=== PATIENT | male | born 1985 | race Caucasian/White ===

== ENCOUNTER 2017-08-13 11:48 | Emergency (ER) | payer BC ==
[2017-08-13 11:52] VITALS: BP 120/80; PULSE 61; RESP 18; TEMP 98.1
[2017-08-13] MEDS ORDERED: KETOROLAC 30 MG/ML 1 ML VIAL IM STA (12:15)
[2017-08-13] MEDS ORDERED: ORPHENADRINE 30 MG/ML 2 ML VIAL IM STA (12:15)
--- NOTE | 2017-08-13 12:18 | ED ---
Back Pain HPI - General Chief Complaint: Back Pain/Injury Stated Complaint: BACK PAIN, POSS PINCHED NERVE Time Seen by Provider: 08/13/17 12:04 Source: patient Limitations: no limitations - History of Present Illness Initial Comments: 31-year-old male patient presents the emergency department today for evaluation of left lower back pain with radiation down the left leg. Patient states that last night he was stepping over a dog when he felt a sharp pop in his left low back. Patient states he has been having significant pain to the location since then especially with change of position and movement. Patient states that the pain radiates down the back of his left leg to approximately the calf region. He denies any numbness or tingling to his lower extremities. Denies any saddle anesthesia. Denies any loss of bowel or bladder control. States he is urinating without difficulty. Patient states he has been taking hot showers to try to relieve the pain but has not been effective. Patient denies any history of similar symptoms. Denies any drug use or alcohol use. Denies any other injury to the back. Patient denies any recent rash, fever, chills, shortness breath, chest pain, abdominal pain, nausea, vomiting, diarrhea, constipation, dizziness, weakness, hematuria, dysuria, urinary urgency, urinary frequency, headache, visual changes, or any other complaints. - Related Data Previous Rx's Medication Instructions Recorded Azithromycin [Zithromax Z-pack] 250 mg PO DIRECTED #6 tab 10/15/15 Diazepam [Valium] 5 mg PO Q8H PRN 3 Days #9 tab 08/13/17 Ibuprofen [Motrin] 600 mg PO Q8HR PRN #30 tab 08/13/17 Allergies Allergy/AdvReac Type Severity Reaction Status Date / Time loratadine [From Claritin] Allergy Unknown Verified 10/15/15 00:54 Mushroom Allergy Unknown Verified 10/15/15 00:54 Penicillins Allergy Unknown Verified 10/15/15 00:54 Review of Systems ROS Statement: Those systems with pertinent positive or pertinent negative responses have been documented in the HPI. ROS Other: All systems not noted in ROS Statement are negative. Past Medical History Past Medical History: No Reported History Additional Past Medical History / Comment(s): earaches History of Any Multi-Drug Resistant Organisms: None Reported Past Surgical History: No Surgical Hx Reported Past Psychological History: No Psychological Hx Reported Smoking Status: Never smoker Past Alcohol Use History: None Reported Past Drug Use History: None Reported General Exam Limitations: no limitations General appearance: alert, in no apparent distress, other (This is a well- developed, well-nourished adult male patient in no acute distress. Vital signs upon presentation are temperature 98.1F, pulse 61, respirations 18, blood pressure 120/80, pulse ox 98% on room air.) Eye exam: Present: normal appearance, PERRL, EOMI. Absent: scleral icterus, conjunctival injection, periorbital swelling ENT exam: Present: normal exam, normal oropharynx, mucous membranes moist Respiratory exam: Present: normal lung sounds bilaterally. Absent: respiratory distress, wheezes, rales, rhonchi, stridor Cardiovascular Exam: Present: regular rate, normal rhythm, normal heart sounds. Absent: systolic murmur, diastolic murmur, rubs, gallop, clicks GI/Abdominal exam: Present: soft, normal bowel sounds. Absent: distended, tenderness, guarding, rebound, rigid Extremities exam: Present: normal inspection, full ROM, normal capillary refill , other (Posttibial pulses are 2+ and equal bilaterally. Lower extremities skin is pink, warm, and dry. Cap refills less than 3 seconds.). Absent: tenderness, pedal edema, joint swelling, calf tenderness Back exam: Present: normal inspection. Absent: paraspinal tenderness, vertebral tenderness Neurological exam: Present: alert, oriented X3, CN II-XII intact, other ( Strength in all 4 extremities is 5/5.) Psychiatric exam: Present: normal affect, normal mood Skin exam: Present: warm, dry, intact, normal color. Absent: rash Course Vital Signs 08/13/17 11:49 Temperature 98.1 F Pulse Rate 61 Respiratory 18 Rate Blood Pressure 120/80 O2 Sat by Pulse 98 Oximetry Medical Decision Making - Medical Decision Making 31-year-old male patient presented to the emergency department today for complaints of left lower back pain with radiation down the left leg. Physical examination was relatively unremarkable. Patient has good strength. Good neurovascular status. No loss of bowel or bladder control. No saddle anesthesia. Patient symptoms are consistent with sciatica. We will give a prescription of ibuprofen and Valium. He will receive Norflex and Toradol here in the emergency department. We did discuss range of motion exercises as well as warm moist heat application. He is instructed to follow-up with the primary care physician for recheck in 1-2 days. Return parameters discussed in detail. He verbalizes understanding and agrees with this plan. Disposition Clinical Impression: Sciatica Disposition: HOME SELF-CARE Condition: Good Instructions: Sciatica (ED), Acute Low Back Pain (ED) Additional Instructions: Apply warm moist heat to the low back. Perform gentle range of motion exercises. Follow-up with your primary care physician for recheck in 1-2 days. Return here immediately for any new, worsening, or concerning symptoms. Prescriptions: Diazepam [Valium] 5 mg PO Q8H PRN 3 Days #9 tab PRN Reason: Muscle Spasm Ibuprofen [Motrin] 600 mg PO Q8HR PRN #30 tab PRN Reason: Pain Is patient prescribed a controlled substance at d/c from ED?: Yes When asked, does pt state using other controlled substances?: No If prescribed controlled substance>3 days was MAPS reviewed?: Prescribed <3 Days If opioid is for acute pain is fill amount 7 days or less?: Yes Referrals: Cynthia Gómez MD [STAFF PHYSICIAN] - 1-2 days Time of Disposition: 12:17
== END 2017-08-13 12:50 | disposition home or self-care (01) ==
LOC: EC 11:48
DX: M54.32 Sciatica, left side (principal); Z88.0 Allergy status to penicillin; Z88.8 Allergy status to other drugs, medicaments and biological substances; Z91.018 Allergy to other foods; X50.1XXA Overexertion from prolonged static or awkward postures, initial encounter
CPT/HCPCS: 99283; 96372 ×2; J2360; J1885

== ENCOUNTER 2018-03-31 09:05 | Emergency (ER) | payer BC ==
[2018-03-31 09:12] VITALS: BP 112/65; PULSE 80; RESP 18; TEMP 98
[2018-03-31] MEDS ORDERED: DIPH,PERTUS(ACELL)TETVAC-LF 0.5 ML VIAL IM ONE (09:15)
--- NOTE | 2018-03-31 09:32 | ED ---
Wound/Laceration HPI - General Chief Complaint: Wound/Laceration Stated Complaint: RT THUMB LAC Time Seen by Provider: 03/31/18 09:14 Source: patient, RN notes reviewed Mode of arrival: ambulatory Limitations: no limitations - History of Present Illness Initial Comments: 32-year-old male presents emergency Department with chief complaint of right thumb laceration. Patient states she is cutting a piece of carpet and states that he slipped with a knife cutting his thumb. He is unsure when his last tetanus was. Patient has full range of motion of his digit denies any paresthesias. Patient offers no other complaints. - Related Data Previous Rx's Medication Instructions Recorded Azithromycin [Zithromax Z-pack] 250 mg PO DIRECTED #6 tab 10/15/15 Diazepam [Valium] 5 mg PO Q8H PRN 3 Days #9 tab 08/13/17 Ibuprofen [Motrin] 600 mg PO Q8HR PRN #30 tab 08/13/17 Allergies Allergy/AdvReac Type Severity Reaction Status Date / Time loratadine [From Claritin] Allergy Unknown Verified 03/31/18 09:07 Mushroom Allergy Unknown Verified 03/31/18 09:07 Penicillins Allergy Unknown Verified 03/31/18 09:07 Review of Systems ROS Statement: Those systems with pertinent positive or pertinent negative responses have been documented in the HPI. ROS Other: All systems not noted in ROS Statement are negative. Past Medical History Past Medical History: No Reported History Additional Past Medical History / Comment(s): earaches History of Any Multi-Drug Resistant Organisms: None Reported Past Surgical History: No Surgical Hx Reported Past Psychological History: No Psychological Hx Reported Smoking Status: Current every day smoker Past Alcohol Use History: None Reported Past Drug Use History: None Reported General Exam Limitations: no limitations General appearance: alert, in no apparent distress Head exam: Present: atraumatic, normocephalic, normal inspection Respiratory exam: Present: normal lung sounds bilaterally. Absent: respiratory distress, wheezes, rales, rhonchi, stridor Cardiovascular Exam: Present: regular rate, normal rhythm, normal heart sounds. Absent: systolic murmur, diastolic murmur, rubs, gallop, clicks Extremities exam: Present: other (Right thumb there is a 2 cm laceration no tendon involvement patient has full range of motion full-strength with resistance, capillary refill less than 2 seconds) Neurological exam: Present: alert, oriented X3, CN II-XII intact Skin exam: Present: warm, dry, intact, normal color. Absent: rash Course Vital Signs 03/31/18 09:07 Temperature 98 F Pulse Rate 80 Respiratory 18 Rate Blood Pressure 112/65 O2 Sat by Pulse 97 Oximetry Procedures - Laceration Laceration #1 Consent Obtained: verbal consent Indication: laceration Site: hand (Right thumb) Size (cm): 2 Description: linear Depth: simple, single layer Anesthetic Used: lidocaine 1%, without epi Anesthesia Technique: local infiltration Amount (mls): 3 Pre-repair: wound explored, irrigated extensively Type of Sutures: nylon Size of Sutures: 4-0 Number of Sutures: 3 Technique: simple, interrupted Patient Tolerated Procedure: well, no complications Medical Decision Making - Medical Decision Making 32-year-old male present emergency department for right thumb laceration. This was closed using sutures. Patient tolerated well wound care instructions given , return parameters were given. Disposition Clinical Impression: Laceration of thumb Disposition: HOME SELF-CARE Condition: Stable Instructions (If sedation given, give patient instructions): Care For Your Stitches (ED), Finger Laceration (ED) Additional Instructions: Please return to the Emergency Department if symptoms worsen or any other concerns. Have sutures removed in 10 days. Is patient prescribed a controlled substance at d/c from ED?: No Referrals: None,Stated [Primary Care Provider] - 1-2 days Time of Disposition: 09:31
== END 2018-03-31 09:48 | disposition home or self-care (01) ==
LOC: EC 09:05
DX: S61.011A Laceration without foreign body of right thumb without damage to nail, initial encounter (principal); Z23 Encounter for immunization; F17.200 Nicotine dependence, unspecified, uncomplicated; Z88.0 Allergy status to penicillin; Z88.8 Allergy status to other drugs, medicaments and biological substances; Z91.018 Allergy to other foods; W26.0XXA Contact with knife, initial encounter
CPT/HCPCS: 12001; 90471; 90715; 99282